=== PATIENT | female | born 1945 | race African-American/Black ===

== ENCOUNTER 2017-09-17 21:23 | Emergency (ER) | payer MEDICARE, OTHER ==
[~2017-09-17] VITALS: Ht 167.6 cm; Wt 64.0 kg
[2017-09-17] MEDS ORDERED: LORazepam 2 MG/ML VIAL ONE (21:37)
[2017-09-17] MEDS ORDERED: METF500T4 PO (21:44)
[2017-09-17] MEDS ORDERED: SEIZURE MEDICATION PO (21:44)
[2017-09-17] MEDS ORDERED: LEVO75 PO (21:44)
[2017-09-17 21:48] LABS: GLUCOSE,POINT OF CARE 127 MG/DL (70-110)
[2017-09-17] MEDS ORDERED: KEPPRA PO (22:05)
[2017-09-17 22:30] LABS: BASOPHILS # (AUTO) 0.01 K/uL (0.00-0.20); BASOPHILS % (AUTO) 0.2 % (0.0-2.0); EOSINOPHILS # (AUTO) 0.02 K/uL (0.00-0.70); HEMATOCRIT 37.4 % (36-46); HEMOGLOBIN 11.9 g/dL (12.0-16.0); LYMPHOCYTES # (AUTO) 0.6 K/uL (1.0-4.8); LYMPHOCYTES % (AUTO) 9.3 % (22.0-44.0); MEAN CORPUSCULAR HEMOGLOBIN 25.9 pg (26.0-34.0); MEAN CORPUSCULAR HGB CONC 31.9 G/dL (31.0-37.0); MEAN CORPUSCULAR VOLUME 81 fL (80-100); MONOCYTES # (AUTO) 0.3 K/uL (0.1-1.0); MONOCYTES % (AUTO) 4.3 % (2.0-9.0); NEUTROPHILS # (AUTO) 5.4 K/uL (1.8-7.7); PLATELET COUNT (AUTO) 205 K/uL (150-450); RED CELL DISTRIBUTION WIDTH 15.3 % (11.5-14.5); WHITE BLOOD COUNT (AUTO) 6.2 K/uL (4.5-11.0)
[2017-09-17] MEDS ORDERED: LevETIRAcetam 1,000 MG in DEXTROSE 5%-WATER 100 ML IV ONE (22:30)
[2017-09-17 22:37] LABS: NEUTROPHILS % (AUTO) 85.9 % (40.0-70.0)
[2017-09-17 22:44] LABS: CALCIUM, TOTAL 9.3 mg/dL (8.8-10.5); CREATININE 1.21 mg/dL (0.60-1.30); POTASSIUM 4.2 mmol/L (3.5-5.1)
[2017-09-17 22:47] LABS: APPEARANCE,URINE CLEAR (CLEAR); GLUCOSE, URINE (UA) NEGATIVE (NEGATIVE); KETONES,URINE NEGATIVE (NEGATIVE); LEUKOCYTE ESTERASE ,URINE NEGATIVE (NEGATIVE); OCCULT BLOOD,URINE MODERATE (NEGATIVE); PH,URINE 6.5 (5.0-8.0); PROTEIN,URINE NEGATIVE (NEGATIVE)
[2017-09-17 22:49] LABS: ALBUMIN 3.6 g/dL (3.4-5.0); BILIRUBIN,TOTAL 0.3 mg/dL (0.1-1.0)
[2017-09-17 22:56] LABS: SQUAMOUS EPITHELIAL CELL,UR Few /LPF (None Seen); WBC,URINE 0-2 /HPF (0-5)
[2017-09-18 03:30] VITALS: BP 108/69
== END 2017-09-18 03:49 | disposition home or self-care (01) ==
LOC: EMS 21:24
DX: G40.909 Epilepsy, unspecified, not intractable, without status epilepticus (principal)
CPT/HCPCS: 36415; 51702; 70450; 80053; 81001; 82962; 85025; 96365; 99285; J0712; J7060; J2060